=== PATIENT | male | born 1930 | race Caucasian/White ===

== ENCOUNTER 2018-07-01 18:14 | Inpatient (IN) | payer OTHER, MEDICARE ==
[~2018-07-01] VITALS: Ht 177.8 cm; Wt 77.6 kg
--- NOTE | 2018-07-01 18:37 | EKG ---
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
--- NOTE | 2018-07-01 18:40 | PHYS DOC ---
Adult General Chief Complaint Chief Complaint: ABDOMINAL PAIN HPI HPI Patient is a 87 year old male who presents with with abdominal pain, mostly in the right lower quadrant, and vomiting for several days. Patient had nausea and vomiting yesterday with mostly nausea today. Patient denies diarrhea. Patient also denies chest pain. Patient is a diabetic but is vague on his medication list. Patient lives at home alone and cooks for himself. Patient called his niece and told him that he had abdominal pain with vomiting and asked to come to the emergency department. Patient arrives in apparently no acute distress. Review of Systems Review of Systems Constitutional: Denies fever or chills [] Eyes: Denies change in visual acuity, redness, or eye pain [] HENT: Denies nasal congestion or sore throat [] Respiratory: Denies cough or shortness of breath [] Cardiovascular: No additional information not addressed in HPI [] GI: Positive for abdominal pain, nausea, vomiting, denies bloody stools or diarrhea [] : Denies dysuria or hematuria [] Musculoskeletal: Denies back pain or joint pain [] Integument: Denies rash or skin lesions [] Neurologic: Denies headache, focal weakness or sensory changes [] Endocrine: Denies polyuria or polydipsia [] All other systems were reviewed and found to be within normal limits, except as documented in this note. Current Medications Current Medications Current Medications Medications (Trade) Dose Ordered Sig/[facility] Start Time Stop Time Status Last Admin Dose Admin Sodium Chloride 1,000 ml @ 125 mls/hr 1X ONCE 07/01/18 19:30 07/02/18 03:29 07/01/18 19:30 125 MLS/HR Allergies Allergies Allergies Coded Allergies Type Severity Reaction Last Updated Verified No Known Drug Allergies 07/01/18 No Physical Exam Physical Exam Constitutional: Well developed, well nourished, no acute distress, non-toxic appearance. [] HENT: Normocephalic, atraumatic, bilateral external ears normal, oropharynx moist, no oral exudates, nose normal. [] Eyes: PERRLA, EOMI, conjunctiva normal, no discharge. [] Neck: Normal range of motion, no tenderness, supple, no stridor. [] Cardiovascular:Heart rate regular rhythm, no murmur [] Lungs & Thorax: Bilateral breath sounds clear to auscultation [] Abdomen: Bowel sounds normal, soft, mild right lower quadrant tenderness, no masses, no pulsatile masses. [] Skin: Warm, dry, no erythema, no rash. [] Back: No tenderness, no CVA tenderness. [] Extremities: No tenderness, no cyanosis, no clubbing, ROM intact, no edema. [] Neurologic: Alert and oriented X 3, normal motor function, normal sensory function, no focal deficits noted. [] Psychologic: Affect normal, judgement normal, mood normal. [] Current Patient Data Vital Signs Vital Signs Date Time Temp Pulse Resp B/P (MAP) Pulse Ox O2 Delivery O2 Flow Rate FiO2 07/01/18 19:16 87 18 112/61 (78) 99 Room Air 07/01/18 18:30 97.6 97.6 Lab Values Laboratory Tests Test 07/01/18 18:45 White Blood Count 11.5 x10^3/uL (4.0-11.0) H Red Blood Count 5.26 x10^6/uL (4.30-5.70) Hemoglobin 16.2 g/dL (13.0-17.5) Hematocrit 46.2 % (39.0-53.0) Mean Corpuscular Volume 88 fL (79-100) Mean Corpuscular Hemoglobin 31 pg (25-35) Mean Corpuscular Hemoglobin Concent 35 g/dL (31-37) Red Cell Distribution Width 13.9 % (11.5-14.5) Platelet Count 346 x10^3/uL (140-400) Neutrophils (%) (Auto) 85 % (31-73) H Lymphocytes (%) (Auto) 8 % (24-48) L Monocytes (%) (Auto) 6 % (0-9) Eosinophils (%) (Auto) 1 % (0-3) Basophils (%) (Auto) 0 % (0-3) Neutrophils # (Auto) 9.7 x10^3uL (1.8-7.7) H Lymphocytes # (Auto) 0.9 x10^3/uL (1.0-4.8) L Monocytes # (Auto) 0.7 x10^3/uL (0.0-1.1) Eosinophils # (Auto) 0.1 x10^3/uL (0.0-0.7) Basophils # (Auto) 0.0 x10^3/uL (0.0-0.2) Prothrombin Time 13.9 SEC (11.7-14.0) Prothrombin Time INR 1.1 (0.8-1.1) PTT 29 SEC (24-38) Sodium Level 136 mmol/L (136-145) Potassium Level 5.0 mmol/L (3.5-5.1) Chloride Level 98 mmol/L (98-107) Carbon Dioxide Level 24 mmol/L (21-32) Anion Gap 14 (6-14) Blood Urea Nitrogen 55 mg/dL (8-26) H Creatinine 1.6 mg/dL (0.7-1.3) H Estimated GFR (Cockcroft-Gault) 41.0 BUN/Creatinine Ratio 34 (6-20) H Glucose Level 192 mg/dL (70-99) H Calcium Level 9.6 mg/dL (8.5-10.1) Total Bilirubin 1.5 mg/dL (0.2-1.0) H Aspartate Amino Transferase (AST) 28 U/L (15-37) Alanine Aminotransferase (ALT) 18 U/L (16-63) Alkaline Phosphatase 124 U/L (46-116) H Troponin I Quantitative < 0.017 ng/mL (0.000-0.055) Total Protein 7.3 g/dL (6.4-8.2) Albumin 3.8 g/dL (3.4-5.0) Albumin/Globulin Ratio 1.1 (1.0-1.7) Amylase Level 34 U/L (25-115) Lipase 57 U/L (73-393) L Thyroid Stimulating Hormone (TSH) 4.554 uIU/mL (0.358-3.74) H Laboratory Tests 07/01/18 18:45 Laboratory Tests 07/01/18 18:45 EKG EKG Normal sinus rhythm at a rate of 82[] Radiology/Procedures Radiology/Procedures [facility] [address] [facility] [place] [address] IMAGING REPORT Signed PATIENT: JULIO ELIZALDE ACCOUNT: [id number] : 1930 LOCATION: ER AGE: 87 SEX: M EXAM STATUS: REG ER ORD. PHYSICIAN: NOELLE FERGUSON MD REASON: pain PROCEDURE: PORTABLE CHEST 1V PORTABLE CHEST 1V History: Abdominal and chest pain Comparison: None. Findings: Single view of the chest is submitted. There is no infiltrate, pneumothorax, or effusion. The pericardial cardiac silhouette is within normal limits in size. There is atherosclerotic calcification near aortic arch, slightly tortuous thoracic aorta. Impression: 1. There is no evidence of acute cardiopulmonary disease. Electronically signed by: Claudia Lyles MD (07/01/2018 6:56 PM) [facility] DICTATED and SIGNED BY: CLAUDIA LYLES MD DATE: 07/01/18 541 [] [facility] [address] [place] [address] IMAGING REPORT Signed PATIENT: JULIO ELIZALDE ACCOUNT: [id number] : 1930 LOCATION: ER AGE: 87 SEX: M EXAM STATUS: REG ER ORD. PHYSICIAN: NOELLE FERGUSON MD REASON: abdominal pain, RLQ PROCEDURE: CT ABDOMEN PELVIS WO CONTRAST Examination: CT of the abdomen pelvis without contrast HISTORY: History of abdominal pain COMPARISON: None available TECHNIQUE: Axial CT images of the abdomen pelvis were performed without contrast. Coronal and sagittal reformats are performed. Exposure: One or more of the following individualized dose reduction techniques were utilized for this examination: 1. Automated exposure control 2. Adjustment of the mA and/or kV according to patient size 3. Use of iterative reconstruction technique FINDINGS: The bibasilar lungs are clear. No evidence of free air identified in the abdomen. The visualized noncontrasted liver, spleen demonstrates few calcified granulomas. The stomach is mildly distended. Small duodenal diverticulum identified in the distal second portion the duodenum. Mild fatty atrophic changes of the pancreas. Mild distended small bowel loops throughout. There is thickened appearance of the right lower quadrant small bowel loops in the region of the distal ileum with surrounding mild fat stranding. Small amount of fluid identified throughout the colon. The appendix is not identified. Liquid stool identified throughout the colon. The urinary bladder is mildly distended. No evidence of intrarenal collecting system calculi or hydronephrosis. Moderate degenerative changes identified in the visualized thoracolumbar spine. IMPRESSION: 1. Thickened wall of the distal ileum with surrounding fat stranding likely ileitis with mild distended small bowel loops throughout. Electronically signed by: Fredrick Bateman MD (07/01/2018 7:53 PM) [facility] DICTATED and SIGNED BY: FREDRICK BATEMAN MD DATE: 07/01/18 194 Course & Med Decision Making Course & Med Decision Making Pertinent Labs and Imaging studies reviewed. (See chart for details) Discussed with Dr. Watts who agrees to admit the patient [] Dragon Disclaimer Dragon Disclaimer This electronic medical record was generated, in whole or in part, using a voice recognition dictation system. Departure Departure Impression: Primary Impression: Ileitis, terminal Disposition: 09 ADMITTED INPATIENT Admitting Physician: Sandra Watts Condition: STABLE NOELLE FERGUSON MD Jul 01, 2018 18:39
[2018-07-01 18:55] LABS: BASO % 0 % (0-3); EOS # 0.1 x10^3/uL (0.0-0.7); EOS % 1 % (0-3); HEMATOCRIT 46.2 % (39.0-53.0); HEMOGLOBIN 16.2 g/dL (13.0-17.5); LYMPH # 0.9 x10^3/uL (1.0-4.8); LYMPH % 8 % (24-48); MEAN CORPUSCULAR HEMOGLOBIN 31 pg (25-35); MEAN CORPUSCULAR HGB CONC 35 g/dL (31-37); MEAN CORPUSCULAR VOLUME 88 fL (79-100); MONO # 0.7 x10^3/uL (0.0-1.1); MONO % 6 % (0-9); NEUT # 9.7 x10^3uL (1.8-7.7); NEUT % 85 % (31-73); PLATELET COUNT 346 x10^3/uL (140-400); RED BLOOD COUNT 5.26 x10^6/uL (4.30-5.70); RED CELL DISTRIBUTION WIDTH 13.9 % (11.5-14.5); WHITE BLOOD COUNT 11.5 x10^3/uL (4.0-11.0)
--- NOTE | 2018-07-01 18:59 | RAD ---
PORTABLE CHEST 1V History: Abdominal and chest pain Comparison: None. Findings: Single view of the chest is submitted. There is no infiltrate, pneumothorax, or effusion. The pericardial cardiac silhouette is within normal limits in size. There is atherosclerotic calcification near aortic arch, slightly tortuous thoracic aorta. Impression: 1. There is no evidence of acute cardiopulmonary disease. Electronically signed by: Farzad Redmond MD (07/01/2018 6:56 PM) [facility]
[2018-07-01 19:05] LABS: CALCIUM 9.6 mg/dL (8.5-10.1); CREATININE 1.6 mg/dL (0.7-1.3); PROTHROMBIN TIME PATIENT 13.9 SEC (11.7-14.0)
[2018-07-01 19:10] LABS: ALBUMIN 3.8 g/dL (3.4-5.0); ALBUMIN/GLOBULIN RATIO 1.1 (1.0-1.7); TOTAL BILIRUBIN 1.5 mg/dL (0.2-1.0); TOTAL PROTEIN 7.3 g/dL (6.4-8.2)
[2018-07-01] MEDS ORDERED: IV NORMAL SALINE 1000ML BAG 1,000 ML IV ONE (19:30)
--- NOTE | 2018-07-01 19:56 | RAD ---
Examination: CT of the abdomen pelvis without contrast HISTORY: History of abdominal pain COMPARISON: None available TECHNIQUE: Axial CT images of the abdomen pelvis were performed without contrast. Coronal and sagittal reformats are performed. Exposure: One or more of the following individualized dose reduction techniques were utilized for this examination: 1. Automated exposure control 2. Adjustment of the mA and/or kV according to patient size 3. Use of iterative reconstruction technique FINDINGS: The bibasilar lungs are clear. No evidence of free air identified in the abdomen. The visualized noncontrasted liver, spleen demonstrates few calcified granulomas. The stomach is mildly distended. Small duodenal diverticulum identified in the distal second portion the duodenum. Mild fatty atrophic changes of the pancreas. Mild distended small bowel loops throughout. There is thickened appearance of the right lower quadrant small bowel loops in the region of the distal ileum with surrounding mild fat stranding. Small amount of fluid identified throughout the colon. The appendix is not identified. Liquid stool identified throughout the colon. The urinary bladder is mildly distended. No evidence of intrarenal collecting system calculi or hydronephrosis. Moderate degenerative changes identified in the visualized thoracolumbar spine. IMPRESSION: 1. Thickened wall of the distal ileum with surrounding fat stranding likely ileitis with mild distended small bowel loops throughout. Electronically signed by: Fredrick Bateman MD (07/01/2018 7:53 PM) [facility]
[2018-07-01] MEDS ORDERED: MORPHINE SULFATE 4 MG/ML VIAL. IV PRN (20:15)
[2018-07-01] MEDS ORDERED: ONDANSETRON PF 4 MG/2 ML VIAL. IV PRN (20:15)
[2018-07-01] MEDS ORDERED: ACETAMINOPHEN 500 MG TABLET PO PRN (21:30)
[2018-07-01] MEDS: IV NORMAL SALINE 1000ML BAG 1,000 ML IV SCH (22:11)
[2018-07-01 23:00] VITALS: BP 133/73
[2018-07-02 03:34] VITALS: BP 110/63
[2018-07-02 04:05] LABS: HEMATOCRIT 40.7 % (39.0-53.0); HEMOGLOBIN 14.3 g/dL (13.0-17.5); RED BLOOD COUNT 4.64 x10^6/uL (4.30-5.70); RED CELL DISTRIBUTION WIDTH 14.5 % (11.5-14.5)
[2018-07-02 04:22] LABS: CALCIUM 8.6 mg/dL (8.5-10.1); CREATININE 1.5 mg/dL (0.7-1.3); GFR 44.2; POTASSIUM 4.2 mmol/L (3.5-5.1)
[2018-07-02] MEDS: IV NORMAL SALINE 1000ML BAG 1,000 ML IV SCH (06:11)
[2018-07-02 07:00] VITALS: BP 125/73
[2018-07-02 11:00] VITALS: BP 125/86
[2018-07-02] MEDS ORDERED: IV NORMAL SALINE 1000ML BAG 1,000 ML IV SCH (12:30)
--- NOTE | 2018-07-02 12:51 | PDOC2 ---
GI CONSULT Reason For Consult: Ileus HPI: HPI: 87 y/o male admitted through the ER last evening. Tells me has been ill for a few days, mentions vomiting for three days (apparently better before coming to the ER) and RLQ pain that has resolved. Denies precipitating events, also not sure of alleviating factors but thinks maybe pain resolved after stooling (but can't tell me when last stooled). Per RN, has not complained of pain and has not stooled since admission. He is tolerating clear liquids, would like to advance diet (requests a t-bone steak), and would like to go home. WBC mildly elevated yesterday, now normal. Cr 1.5 (unclear baseline kidney function). TSH >4. H/o DM. CT noted mildly distended stomach, small duodenal diverticulum, fatty atrophic changes of pancreas, mild distended small bowel loops throughout, thickened distal ileum w/ mild fat stranding, and liquid stool throughout the colon. On IV Levaquin and Flagyl. Typically no issues w/ n/v or abd pain. He denies reflux/heartburn, dysphagia, diarrhea, constipation, hematochezia, melena, or weight loss. I looked through his bag of meds - includes Miralax. No previous EGD or colonoscopy. S/p cholecystectomy. Denies liver or pancreas history. Denies NSAIDs. PMH: PMH: BPH, DM, allergies, cholecystectomy, appendectomy FH: Family History: No pertinent hx Social History: Smoke: Quit ALCOHOL: none Drugs: None ROS: History a bit challenging, please refer to HPI. Vitals: Vitals: Vital Signs Date Time Temp Pulse Resp B/P (MAP) Pulse Ox O2 Delivery O2 Flow Rate FiO2 07/02/18 11:00 97.9 78 18 125/86 (99) 95 Room Air 97.9 Labs: Labs: Laboratory Tests Test 07/01/18 18:45 07/02/18 03:50 07/02/18 07:54 07/02/18 12:01 White Blood Count 11.5 x10^3/uL (4.0-11.0) 8.0 x10^3/uL (4.0-11.0) Red Blood Count 5.26 x10^6/uL (4.30-5.70) 4.64 x10^6/uL (4.30-5.70) Hemoglobin 16.2 g/dL (13.0-17.5) 14.3 g/dL (13.0-17.5) Hematocrit 46.2 % (39.0-53.0) 40.7 % (39.0-53.0) Mean Corpuscular Volume 88 fL (79-100) 88 fL (79-100) Mean Corpuscular Hemoglobin 31 pg (25-35) 31 pg (25-35) Mean Corpuscular Hemoglobin Concent 35 g/dL (31-37) 35 g/dL (31-37) Red Cell Distribution Width 13.9 % (11.5-14.5) 14.5 % (11.5-14.5) Platelet Count 346 x10^3/uL (140-400) 288 x10^3/uL (140-400) Neutrophils (%) (Auto) 85 % (31-73) Lymphocytes (%) (Auto) 8 % (24-48) Monocytes (%) (Auto) 6 % (0-9) Eosinophils (%) (Auto) 1 % (0-3) Basophils (%) (Auto) 0 % (0-3) Neutrophils # (Auto) 9.7 x10^3uL (1.8-7.7) Lymphocytes # (Auto) 0.9 x10^3/uL (1.0-4.8) Monocytes # (Auto) 0.7 x10^3/uL (0.0-1.1) Eosinophils # (Auto) 0.1 x10^3/uL (0.0-0.7) Basophils # (Auto) 0.0 x10^3/uL (0.0-0.2) Prothrombin Time 13.9 SEC (11.7-14.0) Prothromb Time International Ratio 1.1 (0.8-1.1) Activated Partial Thromboplast Time 29 SEC (24-38) Sodium Level 136 mmol/L (136-145) 138 mmol/L (136-145) Potassium Level 5.0 mmol/L (3.5-5.1) 4.2 mmol/L (3.5-5.1) Chloride Level 98 mmol/L (98-107) 103 mmol/L (98-107) Carbon Dioxide Level 24 mmol/L (21-32) 24 mmol/L (21-32) Anion Gap 14 (6-14) 11 (6-14) Blood Urea Nitrogen 55 mg/dL (8-26) 50 mg/dL (8-26) Creatinine 1.6 mg/dL (0.7-1.3) 1.5 mg/dL (0.7-1.3) Estimated GFR (Cockcroft-Gault) 41.0 44.2 BUN/Creatinine Ratio 34 (6-20) Glucose Level 192 mg/dL (70-99) 106 mg/dL (70-99) Calcium Level 9.6 mg/dL (8.5-10.1) 8.6 mg/dL (8.5-10.1) Total Bilirubin 1.5 mg/dL (0.2-1.0) Aspartate Amino Transf (AST/SGOT) 28 U/L (15-37) Alanine Aminotransferase (ALT/SGPT) 18 U/L (16-63) Alkaline Phosphatase 124 U/L (46-116) Troponin I Quantitative < 0.017 ng/mL (0.000-0.055) Total Protein 7.3 g/dL (6.4-8.2) Albumin 3.8 g/dL (3.4-5.0) Albumin/Globulin Ratio 1.1 (1.0-1.7) Amylase Level 34 U/L (25-115) Lipase 57 U/L (73-393) Thyroid Stimulating Hormone (TSH) 4.554 uIU/mL (0.358-3.74) Glucose (Fingerstick) 95 mg/dL (70-99) 166 mg/dL (70-99) Allergies: Coded Allergies: No Known Drug Allergies (Unverified , 07/01/18) Medications: Current Medications Medications (Trade) Dose Ordered Sig/Allison Route PRN Reason Start Time Stop Time Status Last Admin Dose Admin Sodium Chloride 1,000 ml @ 125 mls/hr 1X ONCE IV 07/01/18 19:30 07/02/18 03:29 DC 07/01/18 19:30 Metronidazole 100 ml @ 100 mls/hr 1X ONCE IV 07/01/18 20:15 07/01/18 21:14 DC 07/01/18 20:40 Levofloxacin/ Dextrose 100 ml @ 100 mls/hr 1X ONCE IV 07/01/18 20:15 07/01/18 21:14 DC 07/01/18 22:10 Sodium Chloride 1,000 ml @ 100 mls/hr Q10H IV 07/01/18 20:13 07/02/18 20:12 07/01/18 22:11 Metronidazole 100 ml @ 100 mls/hr Q8HRS IV 07/02/18 06:00 07/02/18 06:09 Imaging: Imaging: CXR Impression: 1. There is no evidence of acute cardiopulmonary disease. CT A/P w/o contrast FINDINGS: The bibasilar lungs are clear. No evidence of free air identified in the abdomen. The visualized noncontrasted liver, spleen demonstrates few calcified granulomas. The stomach is mildly distended. Small duodenal diverticulum identified in the distal second portion the duodenum. Mild fatty atrophic changes of the pancreas. Mild distended small bowel loops throughout. There is thickened appearance of the right lower quadrant small bowel loops in the region of the distal ileum with surrounding mild fat stranding. Small amount of fluid identified throughout the colon. The appendix is not identified. Liquid stool identified throughout the colon. The urinary bladder is mildly distended. No evidence of intrarenal collecting system calculi or hydronephrosis. Moderate degenerative changes identified in the visualized thoracolumbar spine. IMPRESSION: 1. Thickened wall of the distal ileum with surrounding fat stranding likely ileitis with mild distended small bowel loops throughout. PE: GEN: NAD HEENT: Atraumatic, PERRL LUNGS: CTAB HEART: RRR ABD: NABS, S/ND, no RLQ tenderness on my exam - perhaps very mild/vague periumbilical discomfort EXTREMITY: No edema SKIN: No rashes, no jaundice NEURO/PSYCH: A & O 3 - forgetful A/P: A/P: Vomiting, RLQ pain - apparently ongoing for several days prior to ER eval, now resolved Leukocytosis (resolved), ?CARMEN/CKD Abnormal CT - thickened distal ileum w/ mild fat stranding, mildly distended stomach and small bowel loops ?h/o constipation - bag of meds includes Miralax, he thinks abd pain better after stooling at some point CRC screen - none S/p cholecystectomy -- Reviewed w/ Dr. Rose. Pain resolved - okay to ADAT. Probably infectious issue - will check stool studies and inflammatory markers. ?need for antibiotics - defer to primary. DESTINEY SARABIA Jul 02, 2018 12:51
[2018-07-02] MEDS: ENOXAPARIN 40 MG/0.4 ML SYRINGE. SQ SCH (13:03)
[2018-07-02] MEDS: CETIRIZINE HCL 10 MG TABLET. PO SCH (13:03)
[2018-07-02 15:46] VITALS: BP 112/68
[2018-07-02] MEDS ORDERED: FINA5TAB4 PO (16:44)
[2018-07-02] MEDS ORDERED: metFORMIN 500 MG TABLET PO SCH (17:00)
[2018-07-02] MEDS ORDERED: METF500T16 PO (17:04)
[2018-07-02] MEDS ORDERED: MONT10TA9 PO (17:04)
[2018-07-02] MEDS ORDERED: ERGO500027 PO (17:04)
[2018-07-02] MEDS ORDERED: LEVO5TAB2 PO (17:05)
[2018-07-02] MEDS ORDERED: TRIA15OI TP (17:07)
[2018-07-02 17:14] LABS: BILIRUBIN,URINE NEGATIVE (NEG); CLARITY,URINE CLEAR; COLOR,URINE YELLOW; NITRITE,URINE NEGATIVE (NEG); PROTEIN,URINE NEGATIVE (NEG-TRACE); SQUAMOUS EPITHELIAL CELL,UR FEW /LPF
[2018-07-02 17:15] LABS: BACTERIA,URINE 0 /HPF (0-FEW); RBC,URINE 0 /HPF (0-2); WBC,URINE 0 /HPF (0-4)
[2018-07-02] MEDS ORDERED: MAGNESIUM CITRATE 296 ML SOLUTION. PO ONE (17:30)
[2018-07-02 19:39] VITALS: BP 108/71
[2018-07-02] MEDS: MONTELUKAST SODIUM 10 MG TABLET. PO SCH (20:03)
[2018-07-02] MEDS: LACTOBACILLUS RHAMNOSUS GG 1 CAPSULE. PO SCH (20:03)
--- NOTE | 2018-07-02 22:21 | HP ---
ADMIT DATE: 07/01/2018 CHIEF COMPLAINT: Abdominal pain. HISTORY OF PRESENT ILLNESS AND HOSPITAL COURSE: This patient states he has been having abdominal pain for 2 or 3 days prior to admission. It was located mostly in his right lower quadrant, was also associated with nausea, vomiting. During ER evaluation, CT scan revealed ileitis with slightly elevated white count noted. The patient also had evidence of acute on chronic renal failure with baseline creatinine of 1.2 and current creatinine of 1.5 and BUN of 50. Due to these findings, he was admitted for further evaluation, GI consultation and IV fluids. PAST MEDICAL HISTORY: Significant for: 1. Hypertension. 2. Type 2 diabetes. 3. Benign prostatic hypertrophy. MEDICATIONS: The patient's medications are metformin 500 p.o. b.i.d., Proscar 5 mg daily, Xyzal 5 mg daily, Singulair 10 mg daily, vitamin D 50,000 units weekly, MiraLax 17 grams in liquid daily. PAST SURGICAL HISTORY: Significant for cholecystectomy, appendectomy, tonsil adenoidectomy in the past. FAMILY HISTORY: Father with a diagnosis of cancer. His brother also had diagnosis of cancer. The patient does not know what kind of cancer. SOCIAL HISTORY: The patient quit smoking almost 50 years ago, had 5-10 years, was smoking approximately a pack per day. The patient lives alone. He is . DRUG ALLERGIES: The patient denies drug allergies. REVIEW OF SYSTEMS: Negative for weight loss, fever, cough, congestion. The patient has had some nausea and vomiting. He has had episodes of constipation, but did have a bowel movement one day prior to admission. PHYSICAL EXAMINATION: GENERAL: This is a well-nourished, well-developed male. He is alert and oriented to time, place and person. HEENT: Benign except for poor dentition. NECK: Supple, no JVD or bruit. CARDIAC: Regular rate and rhythm. LUNGS: Clear. ABDOMEN: Soft, nontender approximately 2 hours after admission. He had positive bowel sounds. EXTREMITIES: 2+ pulses without edema. NEUROLOGIC: Showed no unilateral findings, the patient is somewhat unsteady on gait. ASSESSMENT: 1. Abdominal pain, possible diverticulitis versus viral syndrome. PLAN: To start IV antibiotics. Repeat blood test in the morning. Consult GI, Medicine and monitor the patient's symptoms and labs. DANIELE ALONSO MD DR: Angelica JOB#: [id number] / [id number]
[2018-07-02 23:14] VITALS: BP 141/96
--- NOTE | 2018-07-02 23:42 | HP ---
ADMIT DATE: 07/01/2018 CHIEF COMPLAINT: Abdominal pain. HISTORY OF PRESENT ILLNESS AND HOSPITAL COURSE: This patient is an 87-year-old male who presents with abdominal pain in his right lower quadrant. CAT scan revealed ileitis of the terminal ileum. He did have evidence of vomiting for several days. Prior to coming to the Emergency Room, he was found to have increased BUN and creatinine consistent with acute renal failure on chronic renal failure with baseline creatinine of 1.2. Due to severity of symptoms, the patient was admitted for IV fluids and further evaluation of ileitis. PAST MEDICAL HISTORY: Significant for BPH. DICTATION ENDS HERE DANIELE ALONSO MD DR: ESTELLA/zach JOB#: [id number] / [id number]
[2018-07-03 03:51] VITALS: BP 145/81
[2018-07-03 04:17] LABS: BASO # 0.1 x10^3/uL (0.0-0.2); BASO % 1 % (0-3); EOS # 0.3 x10^3/uL (0.0-0.7); EOS % 5 % (0-3); HEMATOCRIT 39.6 % (39.0-53.0); HEMOGLOBIN 13.5 g/dL (13.0-17.5); LYMPH # 1.1 x10^3/uL (1.0-4.8); LYMPH % 19 % (24-48); MEAN CORPUSCULAR HEMOGLOBIN 30 pg (25-35); MEAN CORPUSCULAR HGB CONC 34 g/dL (31-37); MEAN CORPUSCULAR VOLUME 88 fL (79-100); MONO # 0.5 x10^3/uL (0.0-1.1); MONO % 10 % (0-9); NEUT # 3.7 x10^3uL (1.8-7.7); NEUT % 65 % (31-73); PLATELET COUNT 257 x10^3/uL (140-400); RED BLOOD COUNT 4.51 x10^6/uL (4.30-5.70); RED CELL DISTRIBUTION WIDTH 14.3 % (11.5-14.5); WHITE BLOOD COUNT 5.7 x10^3/uL (4.0-11.0)
[2018-07-03 04:34] LABS: ALBUMIN 2.8 g/dL (3.4-5.0); ALBUMIN/GLOBULIN RATIO 0.9 (1.0-1.7); CREATININE 1.3 mg/dL (0.7-1.3); GFR 52.1; POTASSIUM 3.8 mmol/L (3.5-5.1); TOTAL BILIRUBIN 0.6 mg/dL (0.2-1.0); TOTAL PROTEIN 5.9 g/dL (6.4-8.2)
[2018-07-03 07:00] VITALS: BP 122/59
[2018-07-03] MEDS: FINASTERIDE 5 MG TABLET. PO SCH (09:06)
[2018-07-03] MEDS: CETIRIZINE HCL 10 MG TABLET. PO SCH (09:06)
[2018-07-03] MEDS: LACTOBACILLUS RHAMNOSUS GG 1 CAPSULE. PO SCH ×2 (09:06→19:47)
--- NOTE | 2018-07-03 09:37 | PDOC ---
Subjective: Subjective: Feeling well - denies vomiting and abd pain, also denies diarrhea. Indicates would like to go home soon. Objective: Vital Signs: Vital Signs Date Time Temp Pulse Resp B/P (MAP) Pulse Ox O2 Delivery O2 Flow Rate FiO2 07/03/18 08:00 Room Air 07/03/18 07:00 98.0 78 18 122/59 (80) 95 98.0 Labs: Laboratory Tests Test 07/02/18 12:01 07/02/18 14:00 07/02/18 16:55 07/02/18 17:05 Glucose (Fingerstick) 166 mg/dL 123 mg/dL Erythrocyte Sedimentation Rate 5 C-Reactive Protein, Quantitative 1.6 mg/L Urine Collection Type Unknown Urine Color Yellow Urine Clarity Clear Urine pH 5.0 Urine Specific [place] 1.020 Urine Protein Negative mg/dL Urine Glucose (UA) 100 mg/dL Urine Ketones (Stick) Negative mg/dL Urine Blood Negative Urine Nitrite Negative Urine Bilirubin Negative Urine Urobilinogen Dipstick 1.0 mg/dL Urine Leukocyte Esterase Negative Urine RBC 0 /HPF Urine WBC 0 /HPF Urine Squamous Epithelial Cells Few /LPF Urine Bacteria 0 /HPF Urine Mucus Slight /LPF Test 07/02/18 20:27 07/03/18 03:55 07/03/18 07:25 Glucose (Fingerstick) 156 mg/dL 112 mg/dL White Blood Count 5.7 x10^3/uL Red Blood Count 4.51 x10^6/uL Hemoglobin 13.5 g/dL Hematocrit 39.6 % Mean Corpuscular Volume 88 fL Mean Corpuscular Hemoglobin 30 pg Mean Corpuscular Hemoglobin Concent 34 g/dL Red Cell Distribution Width 14.3 % Platelet Count 257 x10^3/uL Neutrophils (%) (Auto) 65 % Lymphocytes (%) (Auto) 19 % Monocytes (%) (Auto) 10 % Eosinophils (%) (Auto) 5 % Basophils (%) (Auto) 1 % Neutrophils # (Auto) 3.7 x10^3uL Lymphocytes # (Auto) 1.1 x10^3/uL Monocytes # (Auto) 0.5 x10^3/uL Eosinophils # (Auto) 0.3 x10^3/uL Basophils # (Auto) 0.1 x10^3/uL Sodium Level 142 mmol/L Potassium Level 3.8 mmol/L Chloride Level 106 mmol/L Carbon Dioxide Level 26 mmol/L Anion Gap 10 Blood Urea Nitrogen 35 mg/dL Creatinine 1.3 mg/dL Estimated GFR (Cockcroft-Gault) 52.1 BUN/Creatinine Ratio 27 Glucose Level 134 mg/dL Calcium Level 8.0 mg/dL Total Bilirubin 0.6 mg/dL Aspartate Amino Transf (AST/SGOT) 14 U/L Alanine Aminotransferase (ALT/SGPT) 13 U/L Alkaline Phosphatase 89 U/L Total Protein 5.9 g/dL Albumin 2.8 g/dL Albumin/Globulin Ratio 0.9 PE: GEN: NAD, up to chair watching tv and eating eggs and pancakes LUNGS: CTAB HEART: RRR ABD: S/ND/NT NEURO/PSYCH: A & O 3, a bit [place] A/P: Vomiting, RLQ pain - resolved Abnormal CT - thickened distal ileum w/ mild fat stranding, mildly distended stomach and small bowel loops -- Symptoms resolved, normal ESR and CRP, no stools. DC per primary - shiela w/ GI. DESTINEY SARABIA Jul 03, 2018 09:37
[2018-07-03] MEDS: POLYETHYLENE GLYCOL 3350 17 GM PACKET. PO SCH (10:50)
[2018-07-03] MEDS: DICLOFENAC SODIUM 1% TOPICAL GEL 100GM TUBE. TP SCH ×2 (10:54→19:53)
[2018-07-03 11:28] VITALS: BP 105/62
--- NOTE | 2018-07-03 12:29 | CONS ---
DATE OF CONSULTATION: 07/03/2018 REASON FOR CONSULTATION: I saw him at the request of Dr. Oviedo for rehab evaluation. LOCATION: Room 582. HISTORY OF PRESENT ILLNESS: This is an 87-year-old male, admitted on 07/01/2018 with abdominal pain for about 2-3 days prior to the admission, mostly located in the right lower quadrant of the abdomen with associated nausea and vomiting. CT scan revealed ileitis and slightly elevated white count and evidence of acute on chronic renal failure with baseline creatinine of 1.2. PAST MEDICAL HISTORY: The patient with known hypertension, type 2 diabetes mellitus, benign prostatic hypertrophy, status post cholecystectomy, appendectomy, tonsillectomy, adenoidectomy. FAMILY HISTORY: Father from carcinoma. Brother also had carcinoma. SOCIAL HISTORY: He quit smoking almost 50 years ago. He lives alone. He had steps to climb. ALLERGIES: He is not known allergic to any medication. PHYSICAL EXAMINATION: Today, revealed an elderly male. He is alert, slightly decreased acuity of hearing. He moves all 4 extremities voluntarily where he had 4+/5 grade muscle strength. Deep tendon reflexes are decreased in upper extremities, absent at both knees and ankles, and he had equal perception of touch and pinprick sensation bilaterally. Overall, he had 4+/5 grade muscle strength. He had muscle atrophy involving thenar eminence muscles in both hands with positive Tinel sign over right median nerve at the anterior aspect of the wrist. Negative Tinel's over left median nerve at the wrist and over ulnar nerve at the wrist and elbow. The patient had crepitus on range of motion of his knee joint with mild left knee joint effusion. The patient is independent with bed mobility and transfers. Once up, he walks without any assistive devices. ASSESSMENT: An elderly male with recent hospitalization with right lower quadrant abdominal pain, acute on chronic renal failure. The patient also presents with diabetes mellitus with peripheral neuropathy, degenerative joints of both knees, probably associated right carpal tunnel syndrome, benign prostatic hypertrophy, hypertension. RECOMMENDATIONS: To get him up as tolerated. Home when medically stable with outpatient followup. Dr. Oviedo, I appreciate asking me to participate in care of this interesting patient. I will be glad to follow him with you as needed for the rehabilitation. SIVAKOTI R. JENNYFER, MD DR: SIMRAN/zach JOB#: [id number] / [id number]
[2018-07-03] MEDS: ENOXAPARIN 40 MG/0.4 ML SYRINGE. SQ SCH (14:58)
[2018-07-03 15:30] VITALS: BP 108/56
--- NOTE | 2018-07-03 16:14 | PDOC ---
PROGRESS NOTES Subjective Subjective Patient feeling better as compared to admitted. Patient states he has not had a bowel movement for 3 days. Patient yesterday stated he had a bowel movement in the middle of the day but this could not be confirmed by nursing. Speech therapy was consult for cognitive eval. Patient was able to answer questions appropriately oriented to time person and place. Physical occupational therapy evaluated patient and deemed patient to be unsteady with gait. Recommendation for penitentiary were made. Rehabilitation medicine was consult to rule out structural or muscular abnormalities causing gait disturbance and for evaluation for more intense rehabilitation medicine services. Consult appreciated and no further acute rehabilitation and he is were recommended. Patient may still benefit from penitentiary and PT OT to prevent fall risk. Plans to discharge patient to [facility] in the morning for continuous new care are being made after 3 hospital days have been completed. Objective Objective Vital Signs Date Time Temp Pulse Resp B/P (MAP) Pulse Ox O2 Delivery O2 Flow Rate FiO2 07/03/18 15:30 98.7 65 18 108/56 (73) 96 Room Air 98.7 Intake and Output 07/03/18 07:00 Intake Total 800 ml Balance 800 ml Intake Oral 800 ml # Voids 4 Physical Exam Abdomen: Normal bowel sounds, Other (mild tenderness right) Heart: Regular rate Extremities: No edema General: Alert Lungs: Clear to auscultation Assessment Assessment Problems Medical Problems: (1) Ileitis, terminal Status: Acute Viral ileitis Acute on chronic renal failure Mobility deficit Peripheral neuropathy Osteoarthritis of knees Diabetes type 2 Plan Plan of Care Continue PT and OT modalities. Transfer to penitentiary in a.m. Monitor for bowel movements continue cathartics Comment Review of Relevant I have reviewed the following items cate (where applicable) has been applied. Labs Laboratory Tests Test 07/01/18 18:45 07/02/18 03:50 07/02/18 07:54 07/02/18 12:01 White Blood Count 11.5 x10^3/uL (4.0-11.0) 8.0 x10^3/uL (4.0-11.0) Red Blood Count 5.26 x10^6/uL (4.30-5.70) 4.64 x10^6/uL (4.30-5.70) Hemoglobin 16.2 g/dL (13.0-17.5) 14.3 g/dL (13.0-17.5) Hematocrit 46.2 % (39.0-53.0) 40.7 % (39.0-53.0) Mean Corpuscular Volume 88 fL (79-100) 88 fL (79-100) Mean Corpuscular Hemoglobin 31 pg (25-35) 31 pg (25-35) Mean Corpuscular Hemoglobin Concent 35 g/dL (31-37) 35 g/dL (31-37) Red Cell Distribution Width 13.9 % (11.5-14.5) 14.5 % (11.5-14.5) Platelet Count 346 x10^3/uL (140-400) 288 x10^3/uL (140-400) Neutrophils (%) (Auto) 85 % (31-73) Lymphocytes (%) (Auto) 8 % (24-48) Monocytes (%) (Auto) 6 % (0-9) Eosinophils (%) (Auto) 1 % (0-3) Basophils (%) (Auto) 0 % (0-3) Neutrophils # (Auto) 9.7 x10^3uL (1.8-7.7) Lymphocytes # (Auto) 0.9 x10^3/uL (1.0-4.8) Monocytes # (Auto) 0.7 x10^3/uL (0.0-1.1) Eosinophils # (Auto) 0.1 x10^3/uL (0.0-0.7) Basophils # (Auto) 0.0 x10^3/uL (0.0-0.2) Prothrombin Time 13.9 SEC (11.7-14.0) Prothromb Time International Ratio 1.1 (0.8-1.1) Activated Partial Thromboplast Time 29 SEC (24-38) Sodium Level 136 mmol/L (136-145) 138 mmol/L (136-145) Potassium Level 5.0 mmol/L (3.5-5.1) 4.2 mmol/L (3.5-5.1) Chloride Level 98 mmol/L (98-107) 103 mmol/L (98-107) Carbon Dioxide Level 24 mmol/L (21-32) 24 mmol/L (21-32) Anion Gap 14 (6-14) 11 (6-14) Blood Urea Nitrogen 55 mg/dL (8-26) 50 mg/dL (8-26) Creatinine 1.6 mg/dL (0.7-1.3) 1.5 mg/dL (0.7-1.3) Estimated GFR (Cockcroft-Gault) 41.0 44.2 BUN/Creatinine Ratio 34 (6-20) Glucose Level 192 mg/dL (70-99) 106 mg/dL (70-99) Calcium Level 9.6 mg/dL (8.5-10.1) 8.6 mg/dL (8.5-10.1) Total Bilirubin 1.5 mg/dL (0.2-1.0) Aspartate Amino Transf (AST/SGOT) 28 U/L (15-37) Alanine Aminotransferase (ALT/SGPT) 18 U/L (16-63) Alkaline Phosphatase 124 U/L (46-116) Troponin I Quantitative < 0.017 ng/mL (0.000-0.055) Total Protein 7.3 g/dL (6.4-8.2) Albumin 3.8 g/dL (3.4-5.0) Albumin/Globulin Ratio 1.1 (1.0-1.7) Amylase Level 34 U/L (25-115) Lipase 57 U/L (73-393) Thyroid Stimulating Hormone (TSH) 4.554 uIU/mL (0.358-3.74) Glucose (Fingerstick) 95 mg/dL (70-99) 166 mg/dL (70-99) Test 07/02/18 14:00 07/02/18 16:55 07/02/18 17:05 07/02/18 20:27 Erythrocyte Sedimentation Rate 5 (0-15) C-Reactive Protein, Quantitative 1.6 mg/L (0-3.3) Urine Collection Type Unknown Urine Color Yellow Urine Clarity Clear Urine pH 5.0 Urine Specific [place] 1.020 Urine Protein Negative mg/dL (NEG-TRACE) Urine Glucose (UA) 100 mg/dL (NEG) Urine Ketones (Stick) Negative mg/dL (NEG) Urine Blood Negative (NEG) Urine Nitrite Negative (NEG) Urine Bilirubin Negative (NEG) Urine Urobilinogen Dipstick 1.0 mg/dL (0.2 mg/dL) Urine Leukocyte Esterase Negative (NEG) Urine RBC 0 /HPF (0-2) Urine WBC 0 /HPF (0-4) Urine Squamous Epithelial Cells Few /LPF Urine Bacteria 0 /HPF (0-FEW) Urine Mucus Slight /LPF Glucose (Fingerstick) 123 mg/dL (70-99) 156 mg/dL (70-99) Test 07/03/18 03:55 07/03/18 07:25 07/03/18 11:11 White Blood Count 5.7 x10^3/uL (4.0-11.0) Red Blood Count 4.51 x10^6/uL (4.30-5.70) Hemoglobin 13.5 g/dL (13.0-17.5) Hematocrit 39.6 % (39.0-53.0) Mean Corpuscular Volume 88 fL (79-100) Mean Corpuscular Hemoglobin 30 pg (25-35) Mean Corpuscular Hemoglobin Concent 34 g/dL (31-37) Red Cell Distribution Width 14.3 % (11.5-14.5) Platelet Count 257 x10^3/uL (140-400) Neutrophils (%) (Auto) 65 % (31-73) Lymphocytes (%) (Auto) 19 % (24-48) Monocytes (%) (Auto) 10 % (0-9) Eosinophils (%) (Auto) 5 % (0-3) Basophils (%) (Auto) 1 % (0-3) Neutrophils # (Auto) 3.7 x10^3uL (1.8-7.7) Lymphocytes # (Auto) 1.1 x10^3/uL (1.0-4.8) Monocytes # (Auto) 0.5 x10^3/uL (0.0-1.1) Eosinophils # (Auto) 0.3 x10^3/uL (0.0-0.7) Basophils # (Auto) 0.1 x10^3/uL (0.0-0.2) Sodium Level 142 mmol/L (136-145) Potassium Level 3.8 mmol/L (3.5-5.1) Chloride Level 106 mmol/L (98-107) Carbon Dioxide Level 26 mmol/L (21-32) Anion Gap 10 (6-14) Blood Urea Nitrogen 35 mg/dL (8-26) Creatinine 1.3 mg/dL (0.7-1.3) Estimated GFR (Cockcroft-Gault) 52.1 BUN/Creatinine Ratio 27 (6-20) Glucose Level 134 mg/dL (70-99) Calcium Level 8.0 mg/dL (8.5-10.1) Total Bilirubin 0.6 mg/dL (0.2-1.0) Aspartate Amino Transf (AST/SGOT) 14 U/L (15-37) Alanine Aminotransferase (ALT/SGPT) 13 U/L (16-63) Alkaline Phosphatase 89 U/L (46-116) Total Protein 5.9 g/dL (6.4-8.2) Albumin 2.8 g/dL (3.4-5.0) Albumin/Globulin Ratio 0.9 (1.0-1.7) Glucose (Fingerstick) 112 mg/dL (70-99) 132 mg/dL (70-99) Laboratory Tests Test 07/02/18 16:55 07/02/18 17:05 07/02/18 20:27 07/03/18 03:55 Urine Collection Type Unknown Urine Color Yellow Urine Clarity Clear Urine pH 5.0 Urine Specific [place] 1.020 Urine Protein Negative mg/dL (NEG-TRACE) Urine Glucose (UA) 100 mg/dL (NEG) Urine Ketones (Stick) Negative mg/dL (NEG) Urine Blood Negative (NEG) Urine Nitrite Negative (NEG) Urine Bilirubin Negative (NEG) Urine Urobilinogen Dipstick 1.0 mg/dL (0.2 mg/dL) Urine Leukocyte Esterase Negative (NEG) Urine RBC 0 /HPF (0-2) Urine WBC 0 /HPF (0-4) Urine Squamous Epithelial Cells Few /LPF Urine Bacteria 0 /HPF (0-FEW) Urine Mucus Slight /LPF Glucose (Fingerstick) 123 mg/dL (70-99) 156 mg/dL (70-99) White Blood Count 5.7 x10^3/uL (4.0-11.0) Red Blood Count 4.51 x10^6/uL (4.30-5.70) Hemoglobin 13.5 g/dL (13.0-17.5) Hematocrit 39.6 % (39.0-53.0) Mean Corpuscular Volume 88 fL (79-100) Mean Corpuscular Hemoglobin 30 pg (25-35) Mean Corpuscular Hemoglobin Concent 34 g/dL (31-37) Red Cell Distribution Width 14.3 % (11.5-14.5) Platelet Count 257 x10^3/uL (140-400) Neutrophils (%) (Auto) 65 % (31-73) Lymphocytes (%) (Auto) 19 % (24-48) Monocytes (%) (Auto) 10 % (0-9) Eosinophils (%) (Auto) 5 % (0-3) Basophils (%) (Auto) 1 % (0-3) Neutrophils # (Auto) 3.7 x10^3uL (1.8-7.7) Lymphocytes # (Auto) 1.1 x10^3/uL (1.0-4.8) Monocytes # (Auto) 0.5 x10^3/uL (0.0-1.1) Eosinophils # (Auto) 0.3 x10^3/uL (0.0-0.7) Basophils # (Auto) 0.1 x10^3/uL (0.0-0.2) Sodium Level 142 mmol/L (136-145) Potassium Level 3.8 mmol/L (3.5-5.1) Chloride Level 106 mmol/L (98-107) Carbon Dioxide Level 26 mmol/L (21-32) Anion Gap 10 (6-14) Blood Urea Nitrogen 35 mg/dL (8-26) Creatinine 1.3 mg/dL (0.7-1.3) Estimated GFR (Cockcroft-Gault) 52.1 BUN/Creatinine Ratio 27 (6-20) Glucose Level 134 mg/dL (70-99) Calcium Level 8.0 mg/dL (8.5-10.1) Total Bilirubin 0.6 mg/dL (0.2-1.0) Aspartate Amino Transf (AST/SGOT) 14 U/L (15-37) Alanine Aminotransferase (ALT/SGPT) 13 U/L (16-63) Alkaline Phosphatase 89 U/L (46-116) Total Protein 5.9 g/dL (6.4-8.2) Albumin 2.8 g/dL (3.4-5.0) Albumin/Globulin Ratio 0.9 (1.0-1.7) Test 07/03/18 07:25 07/03/18 11:11 Glucose (Fingerstick) 112 mg/dL (70-99) 132 mg/dL (70-99) Medications Current Medications Sodium Chloride 1,000 ml @ 125 mls/hr 1X ONCE IV Last administered on at 19:30; Start 07/01/18 at 19:30; Stop 07/02/18 at 03:29; Status DC Metronidazole 100 ml @ 100 mls/hr 1X ONCE IV Last administered on 07/01/18at 20:40; Start 07/01/18 at 20:15; Stop 07/01/18 at 21:14; Status DC Levofloxacin/ Dextrose 150 ml @ 100 mls/hr 1X ONCE IV ; Start 07/01/18 at 20: 15; Stop 07/01/18 at 21:44; Status Cancel Levofloxacin/ Dextrose 100 ml @ 100 mls/hr 1X ONCE IV Last administered on at 22:10; Start 07/01/18 at 20:15; Stop 07/01/18 at 21:14; Status DC Ondansetron HCl (Zofran) 4 mg PRN Q8HRS PRN IV NAUSEA/VOMITING; Start at 20:15; Stop 07/02/18 at 16:42; Status DC Morphine Sulfate (Morphine Sulfate) 4 mg PRN Q2HR PRN IV PAIN; Start 07/01/18 at 20:15; Stop 07/02/18 at 16:42; Status DC Sodium Chloride 1,000 ml @ 100 mls/hr Q10H IV Last administered on 07/01/18at 22:11; Start 07/01/18 at 20:13; Stop 07/02/18 at 16:42; Status DC Levofloxacin/ Dextrose 100 ml @ 100 mls/hr Q24H IV ; Start 07/01/18 at 21:15; Status UNV Metronidazole 100 ml @ 100 mls/hr Q8HRS IV Last administered on 07/02/18at 13: 03; Start 07/02/18 at 06:00; Stop 07/02/18 at 16:42; Status DC Acetaminophen (Tylenol) 1,000 mg PRN Q6HRS PRN PO MILD PAIN; Start 07/01/18 at 21:30 Levofloxacin/ Dextrose 50 ml @ 50 mls/hr Q24H IV ; Start 07/02/18 at 22:00; Stop 07/02/18 at 22:00; Status DC Sodium Chloride 1,000 ml @ 100 mls/hr Q10H IV ; Start 07/02/18 at 12:30; Stop 07/02/18 at 22:29; Status DC Enoxaparin Sodium (Lovenox 40mg Syringe) 40 mg Q24H SQ Last administered on at 14:58; Start 07/02/18 at 13:00 Metformin HCl (Glucophage) 500 mg BIDWMEALS PO ; Start 07/02/18 at 17:00; Stop 07/02/18 at 17:00; Status DC Finasteride (Proscar) 5 mg DAILY PO Last administered on 07/03/18at 09:06; Start 07/03/18 at 09:00 Montelukast Sodium (Singulair) 10 mg QHS PO Last administered on 07/02/18at 20: 03; Start 07/02/18 at 21:00 Cetirizine HCl (ZyrTEC) 10 mg DAILY PO Last administered on 07/03/18at 09:06; Start 07/02/18 at 12:30 Lactobacillus Rhamnosus (Culturelle) 1 cap BID PO Last administered on at 09:06; Start 07/02/18 at 21:00 Magnesium Citrate (Citroma) 296 ml 1X ONCE PO Last administered on 07/02/18at 17:30; Start 07/02/18 at 17:30; Stop 07/02/18 at 17:31; Status DC Polyethylene Glycol (miraLAX PACKET) 17 gm DAILY PO Last administered on at 10:50; Start 07/03/18 at 12:00 Diclofenac Sodium (Voltaren) 1 quin BID TP ; Start 07/03/18 at 11:00 Active Scripts Active Reported Triamcinolone Acetonide 0.1% Oint (Triamcinolone Acetonide) 15 Gm Oint...g. 1 Quin TP PRN PRN MIX WITH EUCERIN DIRECTED BY PHYSICIAN Levocetirizine Dihydrochloride 5 Mg Tablet 1 Tab PO DAILY Metformin Hcl 500 Mg Tablet 500 Mg PO BIDWMEALS Montelukast Sodium Tablet (Montelukast Sodium) 10 Mg Tablet 1 Tab PO DAILY Vitamin D2 (Ergocalciferol (Vitamin D2)) 50,000 Unit Capsule 50,000 Unit PO QMONTH Finasteride 5 Mg Tablet 1 Tab PO DAILY Vitals/I & O Vital Sign - Last 24 Hours 07/02/18 07/02/18 07/02/18 07/03/18 19:39 20:00 23:14 03:51 Temp 97.7 97.9 97.5 97.7 97.9 97.5 Pulse 81 75 74 Resp 16 16 16 B/P (MAP) 108/71 (83) 141/96 (111) 145/81 (102) Pulse Ox 97 98 92 O2 Delivery Room Air Room Air Room Air Room Air 07/03/18 07/03/18 07/03/18 07/03/18 07:00 08:00 11:28 15:30 Temp 98.0 98.8 98.7 98.0 98.8 98.7 Pulse 78 63 65 Resp 18 20 18 B/P (MAP) 122/59 (80) 105/62 (76) 108/56 (73) Pulse Ox 95 98 96 O2 Delivery Room Air Room Air Room Air Room Air Intake and Output 07/02/18 07/02/18 07/03/18 15:00 23:00 07:00 Intake Total 600 ml 200 ml Balance 600 ml 200 ml DANIELE ALONSO MD Jul 03, 2018 16:14
[2018-07-03 19:45] VITALS: BP 119/81
[2018-07-03] MEDS: MONTELUKAST SODIUM 10 MG TABLET. PO SCH (19:48)
[2018-07-03 23:57] VITALS: BP 127/84
[2018-07-04 03:00] VITALS: BP 133/67
[2018-07-04 07:00] VITALS: BP 145/92
[2018-07-04] MEDS: CETIRIZINE HCL 10 MG TABLET. PO SCH (08:48)
[2018-07-04] MEDS: POLYETHYLENE GLYCOL 3350 17 GM PACKET. PO SCH (08:48)
[2018-07-04] MEDS: FINASTERIDE 5 MG TABLET. PO SCH (08:48)
[2018-07-04] MEDS: LACTOBACILLUS RHAMNOSUS GG 1 CAPSULE. PO SCH (08:48)
[2018-07-04] MEDS: DICLOFENAC SODIUM 1% TOPICAL GEL 100GM TUBE. TP SCH (08:50)
--- NOTE | 2018-07-04 09:06 | DISCH ---
DISCHARGE DISCHARGE INFORMATION: FINAL DIAGNOSIS Problems Medical Problems: (1) Ileitis, terminal Status: Acute CONDITION ON DISCHARGE: Stable CODE STATUS: Code Status: Full SHELTER: SNF STAY <30 DAYS: Yes POST DISCHARGE ORDERS: DIET AFTER DISCHARGE: ADA TREATMENT/EQUIPMENT ORDERS: Physical Therapy For: Evalulation/Treatment Occupational Therapy For: Evaluation/Treatment DISCHARGE MEDICATIONS: Home Meds Reported Medications Triamcinolone Acetonide (TRIAMCINOLONE ACETONIDE 0.1% OINT) 15 Gm Oint...g., 1 REBECCA TP PRN PRN for RASH, #1 TUBE MIX WITH EUCERIN DIRECTED BY PHYSICIAN 07/02/18 Levocetirizine Dihydrochloride (LEVOCETIRIZINE DIHYDROCHLORIDE) 5 Mg Tablet, 1 TAB PO DAILY, #30 TAB 3 Refills 07/02/18 Metformin Hcl (METFORMIN HCL) 500 Mg Tablet, 500 MG PO BIDWMEALS for ANTI- DIABETIC, TAB 0 Refills 07/02/18 Montelukast Sodium (MONTELUKAST SODIUM TABLET) 10 Mg Tablet, 1 TAB PO DAILY, # 30 TAB 5 Refills 07/02/18 Ergocalciferol (Vitamin D2) (VITAMIN D2) 50,000 Unit Capsule, 71338 UNIT PO QMONTH, CAP 07/02/18 Finasteride (FINASTERIDE) 5 Mg Tablet, 1 TAB PO DAILY, #30 TAB 11 Refills 07/02/18 DANIELE ALONSO MD Jul 04, 2018 09:06
--- NOTE | 2018-07-04 09:42 | PDOC ---
PROGRESS NOTES Subjective Subjective he still admits some lower abdominal pain. Objective Objective Vital Signs Date Time Temp Pulse Resp B/P (MAP) Pulse Ox O2 Delivery O2 Flow Rate FiO2 07/04/18 07:00 98.0 108 18 145/92 (109) 98 Room Air 98.0 Intake and Output 07/04/18 07:00 Intake Total 1050 ml Balance 1050 ml Intake Oral 1050 ml # Voids 8 # Bowel Movements 1 Physical Exam Physical Exam He remains independent with his mobility and most of his self care. He continues with urinary urgency. Assessment Assessment Problems Medical Problems: (1) Ileitis, terminal Status: Acute Plan Plan of Care Agree with plans for transfer to SNF when medically stable. Comment Review of Relevant I have reviewed the following items cate (where applicable) has been applied. Labs Laboratory Tests Test 07/02/18 12:01 07/02/18 14:00 07/02/18 16:55 07/02/18 17:05 Glucose (Fingerstick) 166 mg/dL (70-99) 123 mg/dL (70-99) Erythrocyte Sedimentation Rate 5 (0-15) C-Reactive Protein, Quantitative 1.6 mg/L (0-3.3) Urine Collection Type Unknown Urine Color Yellow Urine Clarity Clear Urine pH 5.0 Urine Specific [employer] [place] 1.020 Urine Protein Negative mg/dL (NEG-TRACE) Urine Glucose (UA) 100 mg/dL (NEG) Urine Ketones (Stick) Negative mg/dL (NEG) Urine Blood Negative (NEG) Urine Nitrite Negative (NEG) Urine Bilirubin Negative (NEG) Urine Urobilinogen Dipstick 1.0 mg/dL (0.2 mg/dL) Urine Leukocyte Esterase Negative (NEG) Urine RBC 0 /HPF (0-2) Urine WBC 0 /HPF (0-4) Urine Squamous Epithelial Cells Few /LPF Urine Bacteria 0 /HPF (0-FEW) Urine Mucus Slight /LPF Test 07/02/18 20:27 07/03/18 03:55 07/03/18 07:25 07/03/18 11:11 Glucose (Fingerstick) 156 mg/dL (70-99) 112 mg/dL (70-99) 132 mg/dL (70-99) White Blood Count 5.7 x10^3/uL (4.0-11.0) Red Blood Count 4.51 x10^6/uL (4.30-5.70) Hemoglobin 13.5 g/dL (13.0-17.5) Hematocrit 39.6 % (39.0-53.0) Mean Corpuscular Volume 88 fL (79-100) Mean Corpuscular Hemoglobin 30 pg (25-35) Mean Corpuscular Hemoglobin Concent 34 g/dL (31-37) Red Cell Distribution Width 14.3 % (11.5-14.5) Platelet Count 257 x10^3/uL (140-400) Neutrophils (%) (Auto) 65 % (31-73) Lymphocytes (%) (Auto) 19 % (24-48) Monocytes (%) (Auto) 10 % (0-9) Eosinophils (%) (Auto) 5 % (0-3) Basophils (%) (Auto) 1 % (0-3) Neutrophils # (Auto) 3.7 x10^3uL (1.8-7.7) Lymphocytes # (Auto) 1.1 x10^3/uL (1.0-4.8) Monocytes # (Auto) 0.5 x10^3/uL (0.0-1.1) Eosinophils # (Auto) 0.3 x10^3/uL (0.0-0.7) Basophils # (Auto) 0.1 x10^3/uL (0.0-0.2) Sodium Level 142 mmol/L (136-145) Potassium Level 3.8 mmol/L (3.5-5.1) Chloride Level 106 mmol/L (98-107) Carbon Dioxide Level 26 mmol/L (21-32) Anion Gap 10 (6-14) Blood Urea Nitrogen 35 mg/dL (8-26) Creatinine 1.3 mg/dL (0.7-1.3) Estimated GFR (Cockcroft-Gault) 52.1 BUN/Creatinine Ratio 27 (6-20) Glucose Level 134 mg/dL (70-99) Calcium Level 8.0 mg/dL (8.5-10.1) Total Bilirubin 0.6 mg/dL (0.2-1.0) Aspartate Amino Transf (AST/SGOT) 14 U/L (15-37) Alanine Aminotransferase (ALT/SGPT) 13 U/L (16-63) Alkaline Phosphatase 89 U/L (46-116) Total Protein 5.9 g/dL (6.4-8.2) Albumin 2.8 g/dL (3.4-5.0) Albumin/Globulin Ratio 0.9 (1.0-1.7) Test 07/03/18 16:36 07/04/18 07:56 Glucose (Fingerstick) 137 mg/dL (70-99) 101 mg/dL (70-99) Laboratory Tests Test 07/03/18 11:11 07/03/18 16:36 07/04/18 07:56 Glucose (Fingerstick) 132 mg/dL (70-99) 137 mg/dL (70-99) 101 mg/dL (70-99) Medications Current Medications Sodium Chloride 1,000 ml @ 125 mls/hr 1X ONCE IV Last administered on at 19:30; Start 07/01/18 at 19:30; Stop 07/02/18 at 03:29; Status DC Metronidazole 100 ml @ 100 mls/hr 1X ONCE IV Last administered on 07/01/18at 20:40; Start 07/01/18 at 20:15; Stop 07/01/18 at 21:14; Status DC Levofloxacin/ Dextrose 150 ml @ 100 mls/hr 1X ONCE IV ; Start 07/01/18 at 20: 15; Stop 07/01/18 at 21:44; Status Cancel Levofloxacin/ Dextrose 100 ml @ 100 mls/hr 1X ONCE IV Last administered on at 22:10; Start 07/01/18 at 20:15; Stop 07/01/18 at 21:14; Status DC Ondansetron HCl (Zofran) 4 mg PRN Q8HRS PRN IV NAUSEA/VOMITING; Start at 20:15; Stop 07/02/18 at 16:42; Status DC Morphine Sulfate (Morphine Sulfate) 4 mg PRN Q2HR PRN IV PAIN; Start 07/01/18 at 20:15; Stop 07/02/18 at 16:42; Status DC Sodium Chloride 1,000 ml @ 100 mls/hr Q10H IV Last administered on 07/01/18at 22:11; Start 07/01/18 at 20:13; Stop 07/02/18 at 16:42; Status DC Levofloxacin/ Dextrose 100 ml @ 100 mls/hr Q24H IV ; Start 07/01/18 at 21:15; Status UNV Metronidazole 100 ml @ 100 mls/hr Q8HRS IV Last administered on 07/02/18at 13: 03; Start 07/02/18 at 06:00; Stop 07/02/18 at 16:42; Status DC Acetaminophen (Tylenol) 1,000 mg PRN Q6HRS PRN PO MILD PAIN; Start 07/01/18 at 21:30 Levofloxacin/ Dextrose 50 ml @ 50 mls/hr Q24H IV ; Start 07/02/18 at 22:00; Stop 07/02/18 at 22:00; Status DC Sodium Chloride 1,000 ml @ 100 mls/hr Q10H IV ; Start 07/02/18 at 12:30; Stop 07/02/18 at 22:29; Status DC Enoxaparin Sodium (Lovenox 40mg Syringe) 40 mg Q24H SQ Last administered on at 14:58; Start 07/02/18 at 13:00 Metformin HCl (Glucophage) 500 mg BIDWMEALS PO ; Start 07/02/18 at 17:00; Stop 07/02/18 at 17:00; Status DC Finasteride (Proscar) 5 mg DAILY PO Last administered on 07/04/18at 08:48; Start 07/03/18 at 09:00 Montelukast Sodium (Singulair) 10 mg QHS PO Last administered on 07/03/18at 19: 48; Start 07/02/18 at 21:00 Cetirizine HCl (ZyrTEC) 10 mg DAILY PO Last administered on 07/04/18at 08:48; Start 07/02/18 at 12:30 Lactobacillus Rhamnosus (Culturelle) 1 cap BID PO Last administered on at 08:48; Start 07/02/18 at 21:00 Magnesium Citrate (Citroma) 296 ml 1X ONCE PO Last administered on 07/02/18at 17:30; Start 07/02/18 at 17:30; Stop 07/02/18 at 17:31; Status DC Polyethylene Glycol (miraLAX PACKET) 17 gm DAILY PO Last administered on at 08:48; Start 07/03/18 at 12:00 Diclofenac Sodium (Voltaren) 1 quin BID TP ; Start 07/03/18 at 11:00 Active Scripts Active Reported Triamcinolone Acetonide 0.1% Oint (Triamcinolone Acetonide) 15 Gm Oint...g. 1 Quin TP PRN PRN MIX WITH EUCERIN DIRECTED BY PHYSICIAN Levocetirizine Dihydrochloride 5 Mg Tablet 1 Tab PO DAILY Metformin Hcl 500 Mg Tablet 500 Mg PO BIDWMEALS Montelukast Sodium Tablet (Montelukast Sodium) 10 Mg Tablet 1 Tab PO DAILY Vitamin D2 (Ergocalciferol (Vitamin D2)) 50,000 Unit Capsule 50,000 Unit PO QMONTH Finasteride 5 Mg Tablet 1 Tab PO DAILY Vitals/I & O Vital Sign - Last 24 Hours 07/03/18 07/03/18 07/03/18 07/03/18 11:28 15:30 19:45 20:00 Temp 98.8 98.7 97.9 98.8 98.7 97.9 Pulse 63 65 77 Resp 20 18 18 B/P (MAP) 105/62 (76) 108/56 (73) 119/81 (94) Pulse Ox 98 96 99 O2 Delivery Room Air Room Air Room Air Room Air 07/03/18 07/04/18 07/04/18 23:57 03:00 07:00 Temp 97.9 98.6 98.0 97.9 98.6 98.0 Pulse 78 68 108 Resp 18 18 B/P (MAP) 127/84 (98) 133/67 (89) 145/92 (109) Pulse Ox 98 98 O2 Delivery BiPAP/CPAP Room Air Intake and Output 07/03/18 07/03/18 07/04/18 15:00 23:00 07:00 Intake Total 900 ml 150 ml Balance 900 ml 150 ml LEATHA BURGER MD Jul 04, 2018 09:42
--- NOTE | 2018-07-04 10:58 | PDOC ---
Subjective: Subjective: Sitting on the toilet - no GI complaints. Objective: Objective: Tolerating PO per RN, no c/o pain, plans to DC to [facility] today. Reviewed other notes - he reported stool yesterday, no seen by staff. Vital Signs: Vital Signs Date Time Temp Pulse Resp B/P (MAP) Pulse Ox O2 Delivery O2 Flow Rate FiO2 07/04/18 08:00 Room Air 07/04/18 07:00 98.0 108 18 145/92 (109) 98 98.0 Labs: Laboratory Tests Test 07/03/18 11:11 07/03/18 16:36 07/04/18 07:56 Glucose (Fingerstick) 132 mg/dL 137 mg/dL 101 mg/dL PE: GEN: NAD - in restroom LUNGS: room air NEURO/PSYCH: A & O 3, [place] A/P: Vomiting, RLQ pain - resolved -- Plans to DC, agree. DESTINEY SARABIA Jul 04, 2018 10:58
[2018-07-04 11:00] VITALS: BP 120/56
--- NOTE | 2018-07-04 15:57 | DS ---
DATE OF DISCHARGE: 07/04/2018 ADMITTING DIAGNOSES: 1. Acute ileitis. 2. Acute on chronic renal failure. 3. Debilitation. 4. Type 2 diabetes. 5. Peripheral neuropathy. 6. Osteoarthritis of knees. HISTORY OF PRESENT ILLNESS AND HOSPITAL COURSE: This patient is an 87-year-old male who lives by himself, came to the hospital with increasing abdominal pain, found to have ileitis by CT. He was made n.p.o. and GI consultation was done. The patient improved with IV fluids, was initially given IV antibiotics but deemed to have a viral illness. His symptoms improved. He was again having bowel movements, which may have also been part of his issue. He was treated with IV fluids for acute on chronic prerenal azotemia and renal failure due to acute tubular necrosis. During hospitalization, PT and OT was involved due to the patient's age and increasing debility. During hospitalization, they deemed he was unsafe and would recommend long term rehab care. Therefore, plans to transfer the patient to long term were made. The patient was back to baseline, but with ongoing debilitation and therefore was admitted to long term. DISCHARGE MEDICATIONS: The patient was discharged to home on the following medications: Vitamin D 50,000 international units daily, finasteride 5 mg daily, Xyzal 5 mg daily, metformin 500 mg b.i.d., Singulair 10 mg daily, triamcinolone cream to rash b.i.d. p.r.n. and MiraLax powder in liquid q. day. He will be followed by PT and OT and house physician at [facility]. DANIELE ALONSO MD DR: [email or web address]/zach JOB#: [id number] / [id number]
== END 2018-07-04 13:00 | DRG 391 ==
LOC: ER 18:14 → 5 SOUTH 20:00
PROVIDERS: ADMIT Family Medicine; ATTEND Family Medicine
PROC: 5A09357 Assistance with Respiratory Ventilation, Less than 24 Consecutive Hours, Continuous Positive Airway Pressure (ICD-10-PCS; principal; 2018-07-04)
DX: A08.4 Viral intestinal infection, unspecified (principal); N17.0 Acute kidney failure with tubular necrosis; N18.9 Chronic kidney disease, unspecified; I12.9 Hypertensive chronic kidney disease with stage 1 through stage 4 chronic kidney disease, or unspecified chronic kidney disease; N40.0 Benign prostatic hyperplasia without lower urinary tract symptoms; E11.22 Type 2 diabetes mellitus with diabetic chronic kidney disease; E11.42 Type 2 diabetes mellitus with diabetic polyneuropathy; M17.0 Bilateral primary osteoarthritis of knee; K57.10 Diverticulosis of small intestine without perforation or abscess without bleeding; Z90.49 Acquired absence of other specified parts of digestive tract; Z87.891 Personal history of nicotine dependence; Z80.9 Family history of malignant neoplasm, unspecified; Z79.84 Long term (current) use of oral hypoglycemic drugs; Z79.899 Other long term (current) drug therapy
CPT/HCPCS: 36415; 71045; 74176; 80048; 80053; 81001; 82150; 82962; 83690; 84443; 84484; 85025; 85027; 85610; 85651; 85730; 86140; 87045; 93005; J1650; J1956; J3490; J7030; 97116; 97530; 97535; 99285-25